=== PATIENT | female | born 1975 | race African-American/Black ===

== ENCOUNTER 2017-01-12 23:34 | Emergency (ER) | payer BC ==
[~2017-01-12 23:34] MED LIST: AUGMENTIN875 M1 DOB; BENTYL20 MG PO; DIFLUCAN PO; FLEXERIL10 MG PO; FLONASE 0.05% N16 G1; HYDROMET SYRUP480 ML PO; NAPROSYN-EC500 M1 PO; NO MEDICATIONS; PATANOL5 ML OU; POLYMYXIN B/TMP10 M1 OU; PREDNISONE PO; ZOFRAN ODT4 MG/UDTAB PO
== END 2017-01-12 23:54 | disposition home or self-care (01) ==
LOC: SED 23:34
DX: J06.9 Acute upper respiratory infection, unspecified (principal); H92.01 Otalgia, right ear; R05 Cough
CPT/HCPCS: 87651; 99282